=== PATIENT | female | born 1955 | race Caucasian/White ===

== ENCOUNTER 2021-02-28 17:57 | Emergency (ER) | payer MEDICARE ==
[~2021-02-28] VITALS: Ht 162.6 cm; Wt 81.0 kg
[2021-02-28 18:15] VITALS: BP 188/100
[2021-02-28] MEDS ORDERED: NAPROXEN 500 MG TABLET PO ONE (18:30)
[2021-02-28] MEDS ORDERED: HYDROcodone/APAP 5/325MG 1 TAB TABLET PO ONE (18:30)
--- NOTE | 2021-02-28 19:14 | RAD ---
Examination: 3 views of the left wrist and left hand HISTORY: History of swelling, redness COMPARISON: None available FINDINGS: The alignment of the carpophalangeal joints, interphalangeal grossly appears unremarkable. There is n o acute fracture or dislocation identified. Chondrocalcinosis identified in the carpal joints and in the triangular fibrocartilage region.. Mild joint space loss carpal joints, carpometacarpal joints, m etacarpophalangeal joints, interphalangeal joints likely degenerative changes. IMPRESSION: 1. Mild degenerative changes. 2. Chondrocalcinosis identified in the carpal joints and in the triangular fibrocartilage region. Electronically signed by: Jann Borja MD (02/28/2021 7:12 PM) [id number]
[2021-02-28] MEDS ORDERED: HYDR-2767 PO (19:38)
[2021-02-28] MEDS ORDERED: METH4TAB2 PO (19:38)
[2021-02-28] MEDS ORDERED: MELO15TA23 PO (19:38)
--- NOTE | 2021-02-28 19:40 | PHYS DOC ---
Past Medical History Past Surgical History: Cholecystectomy, Hysterectomy (DELMYCHIKA VEGA [employer]SIAN [employer]UDIES PROGRAM CHAIR) Smoking Status: Current Every Day Smoker Alcohol Use: None (RICHARDCHIKA Montoya APRN) General Adult EDM: Chief Complaint: HAND PROBLEM HPI: HPI: Patient is a 65 year old female who presents the ED today complaining of 10 out of 10 left hand pain with swelling, symptoms of been going on since Thursday which is 3 days ago. Patient denies any injuries. States symptoms are worse on range of motion. Describes the pain as throbbing and intermittent. Denies anything relieving the pain. (CHIKA HARPER Mamta [employer] CHAIR) Review of Systems: Review of Systems: Constitutional: Denies fever or chills. [] Musculoskeletal: Reports left hand pain and swelling Integument: Denies rash. [] Neurologic: Denies headache, focal weakness or sensory changes. [] Endocrine: Denies polyuria or polydipsia. [] Psychiatric: Denies depression or anxiety. [] (HCIKA HARPER [employer] CHAIR) Heart Score: C/O Chest Pain: N/A Risk Factors: Risk Factors: DM, Current or recent (<one month) smoker, HTN, HLP, family history of CAD, obesity. Risk Scores: Score 0 - 3: 2.5% MACE over next 6 weeks - Discharge Home Score 4 - 6: 20.3% MACE over next 6 weeks - Admit for Clinical Observation Score 7 - 10: 72.7% MACE over next 6 weeks - Early Invasive Strategies (CHIKA HARPER [employer] CHAIR) Current Medications: Current Medications Medications (Trade) Dose Ordered Sig/[facility] Start Time Stop Time Status Last Admin Dose Admin Acetaminophen/ Hydrocodone Bitart (Lortab 5/325) 2 tab 1X ONCE 02/28/21 18:30 02/28/21 18:31 DC 02/28/21 18:25 2 TAB Naproxen (Naprosyn) 500 mg 1X ONCE 02/28/21 18:30 02/28/21 18:31 DC 02/28/21 18:24 500 MG (CHIKA HARPER [employer] CHAIR) Allergies: Allergies: Allergies Coded Allergies Type Severity Reaction Last Updated Verified No Known Drug Allergies 02/28/21 No (CHIKA HARPER APRN) Physical Exam: PE: Constitutional: Well developed, well nourished, no acute distress, non-toxic appearance. [] Skin: Warm, dry, no erythema, no rash. [] Back: No tenderness, no CVA tenderness. [] Extremities: Left hand and wrist with no obvious deformity. Soft tissue swelling with slight noncellulitic erythema noted on the dorsal aspect of the left hand. Diffuse tenderness on the left dorsal hand as well as wrist. Full passive range of motion to the left hand, full active range of motion to the left fingers. Adequate radial, medial, ulnar sensation to the left hand. Neurologic: Alert and oriented X 3, normal motor function, normal sensory function, no focal deficits noted. [] Psychologic: Affect normal, judgement normal, mood normal. [] (CHIKA HARPER APRN) Current Patient Data: Vital Signs: Vital Signs Date Time Temp Pulse Resp B/P (MAP) Pulse Ox O2 Delivery O2 Flow Rate FiO2 02/28/21 18:25 16 95 Room Air 02/28/21 18:15 98.8 102 188/100 (129) 98.8 (CHIKA HARPER [employer] CHAIR) EKG: EKG: [] (CHIKA HARPER APRN) Radiology/Procedures: Radiology/Procedures: []PROCEDURE: WRIST 3V LEFT Examination: 3 views of the left wrist and left hand HISTORY: History of swelling, redness COMPARISON: None available FINDINGS: The alignment of the carpophalangeal joints, interphalangeal grossly appears unremarkable. There is no acute fracture or dislocation identified. Chondrocalcinosis identified in the carpal joints and in the triangular fibrocartilage region.. Mild joint space loss carpal joints, carpometacarpal joints, metacarpophalangeal joints, interphalangeal joints likely degenerative changes. IMPRESSION: 1. Mild degenerative changes. 2. Chondrocalcinosis identified in the carpal joints and in the triangular fibrocartilage region. Electronically signed by: Jann Borja MD (02/28/2021 7:12 PM) [id number] DICTATED and SIGNED BY: JANN BORJA MD DATE: 02/28/21 [id number] (CHIKA HARPER [employer] CHAIR) Course & Med Decision Making: Course & Med Decision Making Pertinent Labs and Imaging studies reviewed. (See chart for details) This a 65-year-old female patient presenting to the ED today with left hand pain and swelling, symptoms began 3 days ago. Left hand x-rays, left wrist x-rays interpreted by radiologist were negative for any acute findings, noted for DJD and some calcifications otherwise no acute findings. Stephon bandage applied to the left hand and wrist by me. Ice elevation encouraged. Provided orthopedic doctor to follow-up with in the next 7 days. (CHIKA HARPER APRN) Dragon Disclaimer: Dragon Disclaimer: This electronic medical record was generated, in whole or in part, using a voice recognition dictation system. 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 Your left hand x-rays were negative for any acute findings, you are noted to have arthritis in your hand. We encourage you to ice and elevate the affected hand. Wear the provided Stephon bandage as tolerated. Follow-up with the provided orthopedic doctor in 1 week. Take the prescribed medications as ordered Scripts Meloxicam (MELOXICAM) 15 Mg Tablet 1 TAB PO DAILY, #14 TAB 0 Refills Prov: CHIKA HARPER GEOVANNY 02/28/21 Hydrocodone/Acetaminophen (Hydrocodone-Acetamin 10-325 mg) 1 Each Tablet 0.5 TAB PO Q6-8HRS PRN for PAIN, #14 TAB Prov: CHIKA HARPER GEOVANNY 02/28/21 Methylprednisolone (MEDROL) 4 Mg Tab.ds.pk 1 PKG PO UD, #1 PKG Prov: CHIKA HARPER GEOVANNY 02/28/21 Attending Signature Attending Signature I have reviewed the PA/STALLION KEEPER's note and plan of care. I was available for consultation as needed during the patient's visit in the emergency department. I agree with the clinical impression, plan, and disposition. (YANY THURSTON DO) MEREDITHCHIKA Mamta SMALL Feb 28, 2021 19:40 YANY THURSTON DO Feb 28, 2021 19:46
== END 2021-02-28 19:52 | disposition home or self-care (01) ==
LOC: ER 17:57
DX: M19.032 Primary osteoarthritis, left wrist (principal); M25.532 Pain in left wrist; F17.200 Nicotine dependence, unspecified, uncomplicated
CPT/HCPCS: 73120; 73130; 99284

== ENCOUNTER → 2021-03-29 | Outpatient (CLI) | payer MEDICARE ==
[2021-02-28 18:15] VITALS: BP 188/100
[~2021-03-29] MED LIST: HYDR-2767 PO; MELO15TA23 PO; METH4TAB2 PO
--- NOTE | 2021-03-29 12:49 | RAD ---
US DPLX VENOUS EXTREMITY LOWER RT History: Reason: RT LEG PAIN X5 DAYS / Spl. Instructions: / History: Comparison: None. Technique: Multiple longitudinal and transverse high resolution real-time images of the venous system of right lower extremity were obtained with color and Doppler sampling. Findings: The common femoral, superficial femoral, popliteal and proximal calf veins are all patent and demonst rate normal flow and compressibility. Normal respiratory phasicity and augmentation is present. Impression: 1. No evidence of deep vein thrombosis. Electronically signed by: Guillermo Stover DO (03/29/2021 12:46 PM) [id number]
== END ==
LOC: US 11:50
PROVIDERS: ATTEND Nurse Practitioner Family
DX: M79.604 Pain in right leg (principal)
CPT/HCPCS: 93971

== ENCOUNTER 2021-09-20 10:39 | Emergency (ER) | payer MEDICARE ==
[~2021-09-20] VITALS: Ht 162.6 cm; Wt 77.1 kg
[2021-09-20 10:55] VITALS: BP 126/95
[2021-09-20] MEDS ORDERED: KETOROLAC 30 MG/ML VIAL. IM ONE (12:15)
[2021-09-20] MEDS ORDERED: ORPHENADRINE CITRATE 60 MG/2 ML VIAL. IM ONE (12:15)
[2021-09-20] MEDS ORDERED: DEXAMETHASONE 4 MG TABLET PO ONE (12:15)
[2021-09-20] MEDS ORDERED: HYDROcodone/APAP 5/325MG 1 TAB TABLET PO ONE (12:15)
[2021-09-20] MEDS ORDERED: ORPH100T PO (12:17)
[2021-09-20] MEDS ORDERED: NAPR-695 PO (12:17)
--- NOTE | 2021-09-20 12:18 | PHYS DOC ---
Past Medical History Past Medical History: Diabetes-Type II, High Cholesterol Past Surgical History: Cholecystectomy, Hysterectomy Smoking Status: Current Every Day Smoker Alcohol Use: None General Adult EDM: Chief Complaint: NECK PAIN HPI: HPI: 65-year-old female presents with report of left-sided neck pain that has been ongoing for the past month. Patient reports has been seen by chiropractor several times without significant relief. Patient also reports being seen in urgent care x2. Patient also reports he was recently seen for a left ear infection and started on antibiotics. Denies any fever or chills. Denies trauma. Reports needs something for relief. Patient does report radiation down left arm. Review of Systems: Review of Systems: Constitutional: Denies fever or chills Eyes: Denies redness or eye pain HENT: Denies nasal congestion or sore throat Respiratory: Denies cough or shortness of breath Cardiovascular: Denies chest pain or palpitations GI: Denies abdominal pain, nausea, or vomiting : Denies dysuria or hematuria Musculoskeletal: Denies back pain; reports left-sided neck pain and left arm pain Integument: Denies rash or skin lesions Neurologic: Denies headache, focal weakness or sensory changes Complete systems were reviewed and found to be within normal limits, except as documented in this note. Heart Score: C/O Chest Pain: N/A Current Medications: Current Medications Medications (Trade) Dose Ordered Sig/Ed Start Time Stop Time Status Last Admin Dose Admin Acetaminophen/ Hydrocodone Bitart (Lortab 5/325) 1 tab 1X ONCE 09/20/21 12:15 09/20/21 12:16 Dexamethasone (Decadron) 10 mg 1X ONCE 09/20/21 12:15 09/20/21 12:16 Ketorolac Tromethamine (Toradol 30mg Vial) 30 mg 1X ONCE 09/20/21 12:15 09/20/21 12:16 Orphenadrine Citrate (Norflex) 60 mg 1X ONCE 09/20/21 12:15 09/20/21 12:16 Allergies: Allergies: Allergies Coded Allergies Type Severity Reaction Last Updated Verified No Known Drug Allergies 02/28/21 No Physical Exam: PE: Constitutional: Well developed, well nourished, no acute distress, non-toxic appearance HENT: Normocephalic, atraumatic Eyes: PERRL, EOMI, conjunctiva normal, no discharge Neck: No midline tenderness, left paraspinal tenderness, supple, no meningeal si gns noted Lungs & Thorax: No respiratory distress, equal chest rise and fall Skin: Warm, dry, no erythema, no rash Back: No tenderness, no CVA tenderness Extremities: No tenderness, ROM intact, no edema Neurologic: Alert and oriented X 3, normal motor function, normal sensory function, no focal deficits noted Psychologic: Affect normal, judgment normal Current Patient Data: Vital Signs: Vital Signs Date Time Temp Pulse Resp B/P (MAP) Pulse Ox O2 Delivery O2 Flow Rate FiO2 09/20/21 10:55 98.9 100 18 126/95 (105) 97 Room Air 98.9 EKG: EKG: [] Radiology/Procedures: Radiology/Procedures: [] Course & Med Decision Making: Course & Med Decision Making Patient presents with HPI and physical exam concerning for chronic neck pain with concern for cervical radiculopathy. Denies history of known trauma. No midline spinal tenderness noted. Patient is afebrile. No meningeal signs appreciated. Symptomatic treatment provided. Patient stable for discharge with outpatient follow-up with PCP/pain management. Pain management referral provided. Discussed findings and plan with patient, who acknowledges understanding and agreement. Superbacon Disclaimer: [employer] Disclaimer: This electronic medical record was generated, in whole or in part, using a voice recognition dictation system. Departure Departure Impression: Primary Impression: Neck pain Disposition: HOME / SELF CARE / HOMELESS Condition: STABLE Referrals: NO PCP (PCP) PRIAYNK MONTES MD Patient Instructions: Cervical Radiculopathy, [id number], Cervical Strain and Sprain with Rehab[facility] Additional Instructions: ICE area of discomfort 20 min on then leave off next 20 mins. Repeat several times daily as needed. Continue antibiotics to completion. Discontiue Baclofen muscle relaxer. Scripts Hydrocodone Bit/Acetaminophen (HYDROCODONE-APAP 5-325 ) 1 Tab Tablet 0.5-1 TAB PO PRN Q6HRS PRN for PAIN, #20 TAB 0 Refills Prov: YANY THURSTON DO 09/20/21 Orphenadrine Citrate (ORPHENADRINE CITRATE) 100 Mg Tablet.er 1 TAB PO BID PRN for MUSCLE PAIN, #14 TAB Prov: YANY THURSTON DO 09/20/21 Naproxen (NAPROXEN) 375 Mg Tablet 375 MG PO TID PRN for PAIN, #30 TAB Prov: YANY THURSTON DO 09/20/21 YANY THURSTON DO Sep 20, 2021 12:18
[2021-09-20] MEDS ORDERED: HYDR-2761 PO (12:22)
== END 2021-09-20 12:30 | disposition home or self-care (01) ==
LOC: ER 10:39
DX: M54.2 Cervicalgia (principal); E11.9 Type 2 diabetes mellitus without complications; E78.00 Pure hypercholesterolemia, unspecified; F17.200 Nicotine dependence, unspecified, uncomplicated
CPT/HCPCS: 96372; 99284; J1885; J2360